=== PATIENT | male | born 1970 | race Caucasian/White ===

== ENCOUNTER → 2020-07-27 | Outpatient (CLI) | payer OTHER | LOC: M.ULTRA 09:20 | PROVIDERS: ATTEND Nurse Practitioner Family | DX: K76.0 Fatty (change of) liver, not elsewhere classified (principal); N28.1 Cyst of kidney, acquired; I10 Essential (primary) hypertension; R94.5 Abnormal results of liver function studies ==

== ENCOUNTER → 2020-07-27 | Outpatient (CLI) | payer OTHER | LOC: M.CT 09:23 | PROVIDERS: ATTEND Nurse Practitioner Family | DX: Z13.6 Encounter for screening for cardiovascular disorders (principal) ==